=== PATIENT | male | born 1970 | race Caucasian/White ===

== ENCOUNTER 2020-05-24 17:15 | Emergency (ER) | payer BC, SELFPAY ==
[2020-05-24 17:26] VITALS: BP 135/79; PULSE 56; RESP 16; TEMP 37.3; O2SAT 100
--- NOTE | 2020-05-24 17:47 | ECG_ITS ---
Measurements Intervals [place] Rate: 63 P: 37 GA: 167 QRS: 45 QRSD: 96 T: 31 QT: 381 QTc: 391 Interpretive Statements SINUS RHYTHM WITH SINUS ARRHYTHMIA LOW QRS VOLTAGE IN PRECORDIAL LEADS BORDERLINE ECG Electronically Signed On 05-25-2020 7:35:25 SUBSTANCE ABUSE CLINICIAN by Tarun Reyna D.O.
--- NOTE | 2020-05-24 17:54 | ED.GENADULT ---
HPI - General Adult General Chief complaint: Arrhythmia/Palpitations Stated complaint: fatigue/chest feels different Source: patient Mode of arrival: ambulatory Limitations: no limitations History of Present Illness HPI narrative: Patient is a 50-year-old male who presents with complaints of palpitations and fluttering of heart intermittently over the past 3 days. He reports increased fatigue over the past 3 days as well. He denies shortness of breath. He denies known exposure to Covid. He denies all medical history at this time. He does not take daily medications. He reports the fluttering in his chest has awakened him 2 times over the past 3 days. He denies pain at this time. 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 Related Data Home Medications Medication Instructions Recorded Confirmed No Home Medications 05/24/20 05/24/20 Allergies Allergy/AdvReac Type Severity Reaction Status Date / Time No Known Allergies Allergy Verified 05/24/20 17:44 Review of Systems Review of Systems: Narrative: CONSTITUTIONAL: Denies fever, chills, or sweats. Reports increased fatigue EYES: Denies visual changes, redness, or discharge. ENT: Denies rhinorrhea, congestion, sore throat, or otalgia. CARDIOVASCULAR: Denies chest pain, reports intermittent palpitations RESPIRATORY: Denies cough or dyspnea. GASTROINTESTINAL: Denies abdominal pain, nausea, vomiting, or diarrhea. GENITOURINARY: Denies dysuria or hematuria. SKIN: Denies rash or itching. MUSCULOSKELETAL: Denies back pain, joint pain, or myalgia. NEUROLOGIC: Denies headache, numbness, dizziness, or weakness. PSYCHIATRIC: Denies anxiety or depression. [facility] Past Medical History Medical History (Updated 05/24/20 @ 18:08 by KEMI Loaiza) Patient denies significant medical history Surgical History Surgical History (Updated 05/24/20 @ 17:56 by KEMI Loaiza) No significant past surgical history Social History Social History (Updated 05/24/20 @ 17:58 by KEMI Loaiza) Smoking status: Former smoker Tobacco type: cigarettes Alcohol intake: never Substance use: never Occupation/Education: occupation Exam Narrative: Exam Narrative: GENERAL: Well-appearing and in no acute distress. HEAD: Normocephalic, atraumatic. EYES: EOMI. No redness or drainage. ENT: Mucous membranes pink and moist. CHEST: No respiratory distress. Clear to auscultation. HEART: Regular rate and rhythm. No murmur appreciated. GI: Soft, nontender without rebound, or guarding. EXTREMITIES: Normal range of motion. SKIN: Warm, dry, no rash. NEURO: No focal deficits. Alert and oriented x3. Gait steady. PSYCH: Normal affect. No signs of depression or anxiety. Course Vital Signs Vital signs: Vital Signs Temperature 37.3 C 05/24/20 17:26 Pulse Rate 56 L 05/24/20 17:26 Respiratory Rate 16 05/24/20 17: Blood Pressure 135/79 05/24/20 17:26 Pulse Oximetry 100 05/24/20 17: Temperature 37.3 C 05/24/20 17:26 Pulse Rate 56 L 05/24/20 17:26 Respiratory Rate 16 05/24/20 17:26 Blood Pressure 135/79 05/24/20 17:26 Pulse Oximetry 100 05/24/20 17:26 Reviewed. Patient has been instructed to follow-up with his PCP regarding his blood pressure. Transfer Transfered to: [place] Transportation: Other (Refused EMS, patient by private vehicle) Transfer rationale: Higher level care Accepting physician: Dr. Koo Medical Decision Making [facility] Narrative Medical decision making narrative: Discussed with patient risks related to cardiac conditions. Patient agrees to further evaluation and diagnostic testing in the emergency department. Patient refuses EMS transport and will drive self to ED at this time. Patient aware of risk. Patient is stable for transfer to the ED. Differential Diagnosis Differential Diagnosis: Chest pain, angina, CHF, arrhythmia Vital Signs Vital Signs: Tabitha
[2020-05-24 17:58] LABS: Glucose Point of Care 91 (65-105)
== END 2020-05-24 18:19 | disposition short-term general hospital (02) ==
PROVIDERS: Emergency Provider Nurse Practitioner
DX: R00.2 Palpitations (principal); Z87.891 Personal history of nicotine dependence
CPT/HCPCS: 82948; 93005; 99213; G0463

== ENCOUNTER 2020-05-24 18:54 | Emergency (ER) | payer BC, SELFPAY ==
--- NOTE | 2020-05-24 19:42 | PC.NURSE ---
called multiple times for triage, no response attempted to identify pt in lobby not there
== END 2020-05-24 19:42 | disposition left against medical advice (07) ==
PROVIDERS: Emergency Provider Emergency Medicine
DX: Z53.21 Procedure and treatment not carried out due to patient leaving prior to being seen by health care provider (principal)
CPT/HCPCS: 82948; 93005; 99199